=== PATIENT | female | born 1995 | race Caucasian/White ===

== ENCOUNTER 2019-10-09 19:07 | Emergency (ER) | payer OTHER, SELFPAY ==
[2019-10-09 19:18] VITALS: BP 154/99; PULSE 109; RESP 16; TEMP 37.7; O2SAT 100
--- NOTE | 2019-10-09 19:19 | ED.GENADULT ---
HPI - General Adult General Chief complaint: Dental/Oral Stated complaint: tongue pain Time Seen by Provider: 10/09/19 19:22 Source: patient and RN notes reviewed Limitations: no limitations History of Present Illness HPI narrative: This is a 24 years old female presents to the office for an evaluation of canker sores in her mouth. She is a pharmacist and training, she try [id number] Maalox and Benadryl for her mouth sore with no relief. Denies any other associated symptoms. Related Data Home Medications Medication Instructions Recorded Confirmed albuterol sulfate 2 puff INHALATION QID 03/22/19 10/09/19 dextroamphetamine-amphetamine 15 mg DAILY 03/22/19 10/09/19 lisdexamfetamine [Vyvanse] 50 mg DAILY 03/22/19 10/09/19 etonogestrel [Nexplanon] 1 implant SUBDERMAL ONCE 10/09/19 10/09/19 fluticasone furoate-vilanterol 1 inh INHALATION DAILY 10/09/19 10/09/19 [Breo Ellipta] Allergies Allergy/AdvReac Type Severity Reaction Status Date / Time No Known Allergies Allergy Verified 10/09/19 19:13 Review of Systems Review of Systems: Narrative: CONSTITUTIONAL: Denies fever or feeling ill ENT: Denies rhinorrhea, congestion, otalgia. Reports sore underneath tongue CARDIOVASCULAR: Denies chest pain RESPIRATORY: Denies dyspnea GASTROINTESTINAL: Denies abdominal pain, nausea, vomiting SKIN: Denies rash MUSCULOSKELETAL: Denies acute back pain NEUROLOGIC: Denies lightheaded All other systems reviewed are negative, except as documented in HPI. PMFSH Social History Social History Gender identity (if verbalized by the patient): Female Comments At time of signature, I agree with nursing past medical, surgical, social and family history. There is no relevant family history pertinent to the presenting complaint. Exam Narrative: Exam Narrative: GENERAL: This is a well-nourished, well-developed patient, in no apparent distress. EARS: External ears normal, auditory canals clear and without drainage, TMs normal without perforation. Hearing grossly intact. THROAT: Mucous membranes moist, posterior pharynx clear, right side underneath tongue noted two ulcerate lesions NECK: Neck supple, non-tender without lymphadenopathy, masses or thyromegaly. CARDIOVASCULAR: Regular rate and rhythm without murmurs, gallops, or rubs. RESPIRATORY: Clear to auscultation. Breath sounds equal bilaterally. No wheezes, rales, or rhonchi. GASTROINTESTINAL: Abdomen soft, non-tender, nondistended. Bowel sounds are active. No guarding. SKIN: warm, intact with no suspicious lesions or rash, good texture and turgor. NEURO: awake, alert, and oriented to person, place and time. There were no obvious focal neurologic abnormalities. Steady gait [place] Coma Scale Eye Opening: Spontaneous 4 [place] Coma Scale Motor: Obeys Commands 6 [place] Coma Scale Verbal: Oriented 5 Medical Decision Making MDM Narrative Medical decision making narrative: Discharge instructions reviewed with patient, as well as provided in writing per nursing staff. The instructions also include specific and strict return/GO TO THE ER as well as f/u information. All questions have been answered, and the patient deny any further questions with discharge and discharge plan. Differential Diagnosis Differential Diagnosis: Trauma, pharyngitis, rash Critical Care Time Critical Care Time Critical Care Time: No Discharge Plan Discharge Clinical Impression: Canker sores oral Patient Disposition: Home, Self-Care Condition: Stable Instructions: Canker Sores (ED) Additional Instructions: Mix the Lido with Milanta and Benadryl as one to one concentration Use the triamcinolone paste on affected area as directed Make sure to drink plenty of water Follow-up with your doctor as needed Prescriptions: New triamcinolone acetonide 0.1 % paste 1 applic DENTAL BID 10 Days Qty: 5 RF: 0 Lidocaine Viscous 2 % solution
== END 2019-10-09 19:40 | disposition home or self-care (01) ==
PROVIDERS: Emergency Provider Nurse Practitioner
DX: K12.0 Recurrent oral aphthae (principal)
CPT/HCPCS: 99213; G0463